=== PATIENT | female | born 1995 | race Caucasian/White ===

== ENCOUNTER → 2018-11-20 | Outpatient (CLI) | payer BC ==
--- NOTE | 2018-11-20 09:17 | NM ---
Nuclear medicine hepatobiliary scan. HISTORY: Pain. DOSAGE: The patient received 1.4 micrograms of CCK and 4.3 mCi of Technetium 99m Choletec. FINDINGS: There is normal hepatic extraction. The gallbladder is seen by 20 minutes. There is bilia ry to bowel clearance by 30 minutes. Ejection fraction is 86%. IMPRESSION: 1. Normal filling of the gallbladder with radiotracer. 2. Ejection fraction of 86% can occasionally be seen with hyperdynamic gallbladder correlate clinical ly.
== END | disposition home or self-care (01) ==
LOC: RADNMMAIN 06:53
PROVIDERS: ATTEND Surgery
DX: K82.8 Other specified diseases of gallbladder (principal)
CPT/HCPCS: 78227; A9537; J2805

== ENCOUNTER 2018-12-02 09:38 | Day surgery (SDC) | payer BC ==
[2018-11-26 13:40] VITALS: BMI 25.4
--- NOTE | 2018-12-02 09:25 | P.GSHP ---
History of Present Illness H&P Date: 12/02/18 Chief Complaint: Right upper quadrant pain This a 23-year-old female who presents today for laparoscopic cholecystectomy. Patient's had complaints of right quadrant pain. Her recent HIDA scan shows abnormal ejection fraction consistent with biliary hyperkinesia and chronic cholecystitis. Past Medical History Past Medical History: Asthma Additional Past Medical History / Comment(s): HX EXERCISE INDUCED ASTHMA , CYST RIGHT OVARY, HX MONO, STATES CONSTIPATION, NAUSEA AND STOMACH PAIN. History of Any Multi-Drug Resistant Organisms: None Reported Past Surgical History: Tonsillectomy Additional Past Surgical History / Comment(s): TONSILLECTOMY (2014), COLONOSCOPY, EGD. Past Anesthesia/Blood Transfusion Reactions: No Reported Reaction Past Psychological History: No Psychological Hx Reported Smoking Status: Never smoker Past Alcohol Use History: Rare Past Drug Use History: None Reported - Past Family History Mother Family Medical History: Cancer Additional Family Medical History / Comment(s): BREAST CANCER Medications and Allergies Home Medications Medication Instructions Recorded Confirmed Type Loestrin Control Pills 1 tab PO HS 11/26/18 11/26/18 History valACYclovir HCL [Valtrex] 1,000 mg PO Q12HR PRN 11/26/18 11/26/18 History Allergies Allergy/AdvReac Type Severity Reaction Status Date / Time No Known Allergies Allergy Verified 11/26/18 13:14 Surgical - Exam - General well developed, well nourished, no distress - Eyes PERRL - ENT normal pinna - Neck no masses - Respiratory normal expansion - Cardiovascular Rhythm: regular - Abdomen Abdomen: soft, non tender Assessment and Plan Assessment: Chronic cholecystitis. We'll perform laparoscopic cholecystectomy.
[~2018-12-02 09:38] MED LIST: DEXAMETHASONE SOD PHOSPHATE 10 MG/ML 1 ML VIAL IV ONE; HEPARIN SODIUM,PORCINE 5,000 UNIT/ML 1 ML VIAL SQ ONE; HYDROmorphone 0.5 MG/0.5 ML SYRINGE IVP PRN; KETOROLAC 30 MG/ML 1 ML VIAL IVP SCH; LIDOCAINE 1% 20 ML VIAL (10MG/ML) FOR IV START INTRADERMA PRN; METOCLOPRAMIDE 5 MG/ML 2 ML VIAL IVP PRN; ONDANSETRON 4 MG/2 ML VIAL IVP ONE; ONDANSETRON 4 MG/2 ML VIAL IVP PRN; SCOPOLAMINE 1.5MG/72HR PATCH TRANSDERM ONE; ceFAZolin IN SWFI 2 GM/20 ML SYRINGE IVP ONE
[2018-12-02] MEDS: LACTATED RINGERS 1,000 ML IV SCH ×2 (10:14→10:36)
[2018-12-02] MEDS ORDERED: SUCCINYLCHOLINE CHLORIDE 100 MG/5 ML SYR IV ONE (10:30)
[2018-12-02] MEDS ORDERED: LIDOCAINE 1% INJ 10MG/ML (20 ML MDV) ONE (10:30)
[2018-12-02] MEDS ORDERED: fentaNYL (PF) 50 MCG/ML 2 ML AMP ONE (10:30)
[2018-12-02] MEDS ORDERED: GLYCOPYRROLATE 0.2 MG/ML 2 ML VIAL ONE (10:30)
[2018-12-02] MEDS ORDERED: MIDAZOLAM 2 MG/2 ML VIAL ONE (10:30)
[2018-12-02] MEDS ORDERED: PROPOFOL 10 MG/ML 20 ML VIAL IV ONE (10:30)
[2018-12-02] MEDS ORDERED: NEOSTIGMINE 1 MG/ML 10 ML VIAL ONE (10:30)
[2018-12-02] MEDS ORDERED: BUPIVACAIN-EPI 0.25%-1:200,000 30 ML VIAL SQ ONE (10:52)
--- NOTE | 2018-12-02 11:26 | P.OP ---
Date of Procedure: 12/02/18 Preoperative Diagnosis: Cholecystitis Postoperative Diagnosis: Cholecystitis Procedure(s) Performed: Laparoscopic cholecystectomy Anesthesia: ALFRED Surgeon: Marcello Cook Estimated Blood Loss (ml): 5 Pathology: other (Gallbladder) Condition: stable Disposition: PACU Description of Procedure: The patient was placed on the operating table. The patient received a general endotracheal tube anesthesia. The patients abdomen was prepped and draped in the usual sterile fashion. Through an infraumbilical stab incision, the fascia of the anterior abdominal wall was grasped with a pair of Kochers and then the Veress needle was placed in the peritoneal cavity. Position of the Veress needle was confirmed with positive drop test. The abdomen was then insufflated. After adequate insufflation, the 10 mm trocar was placed in the peritoneal cavity. Following this the laparoscope was placed in the peritoneal cavity. The patient was placed in the head-up, right side up position and then a 5 mm trocar was placed in the right lateral and right subcostal position under direct visualization. A 8 mm trocar was placed in the epigastric position. The gallbladder was grasped in the fundus and infundibulum. Traction on the gallbladder was placed in the lateral and the cephalad positions. The triangle of Calot was visualized.. The cystic duct was bluntly dissected until the union of the cystic duct and common bile duct was seen. A critical view of safety was achieved. The cystic duct was then divided and sealed with the Harmonic scissors. A PDS Endoloop was then placed throughout the cystic duct stump. The cystic artery divided and sealed with the Harmonic scissors. The gallbladder was then removed from the liver bed using Harmonic scissors. The gallbladder was then extracted through the epigastric port site. Operative field was checked for any bleeding spots and Harmonic scissors was used to coagulate the liver bed. The abdomen was irrigated. The trocars were removed. The skin was closed using interrupted 3-0 Vicryl suture. Dermabond dressing were applied. The patient tolerated the procedure well.
[2018-12-02 11:33] VITALS: TEMP 96.8
[2018-12-02 12:20] VITALS: RESP 16
[2018-12-02 13:10] VITALS: BP 133/75; PULSE 85
== END 2018-12-02 13:37 | disposition home or self-care (01) ==
LOC: OR 09:38
PROVIDERS: ATTEND Surgery
DX: K81.1 Chronic cholecystitis (principal); J45.909 Unspecified asthma, uncomplicated; Z79.3 Long term (current) use of hormonal contraceptives; Z79.899 Other long term (current) drug therapy
CPT/HCPCS: 47562; 81025; 88304; J2250; J1644; J1100; J2710; J2405; J2001; J3010; J0330; J2704; J0690

== ENCOUNTER 2022-06-15 21:33 | Inpatient (IN) | payer BC ==
[2022-06-15] MEDS ORDERED: LIDOCAINE 0.5% (PF) 5 MG/ML (50 ML SDV) SQ PRN (21:49)
[2022-06-15] MEDS ORDERED: TERBUTALINE 1 MG/ML VIAL SQ PRN (21:49)
[2022-06-15] MEDS ORDERED: BUTORPHANOL 1 MG/ML 1 ML VIAL IV PRN (21:58)
[2022-06-15] MEDS ORDERED: OXYTOCIN 30 UNITS/500 ML NS 30 UNIT in SALINE 1 500ML.BAG IV SCH (22:00)
[2022-06-15] MEDS: LACTATED RINGERS 1,000 ML IV SCH (22:39)
[2022-06-15 22:51] LABS: Basophils % (A) 0 %; Eosinophils # (A) 0.1 k/uL (0-0.7); Eosinophils % (A) 1 %; HCT 34.1 % (34.0-46.0); HGB 11.7 gm/dL (11.4-16.0); Lymphocytes # (A) 1.8 k/uL (1.0-4.8); Lymphocytes % (A) 17 %; MCH 31.3 pg (25.0-35.0); MCHC 34.4 g/dL (31.0-37.0); MCV 90.9 fL (80.0-100.0); Mean Platelet Volume 9.9; Monocytes # (A) 0.6 k/uL (0-1.0); Monocytes % (A) 6 %; Neutrophils # (A) 8.1 k/uL (1.3-7.7); Neutrophils % (A) 75 %; Platelet Count 182 k/uL (150-450); RBC 3.75 m/uL (3.80-5.40); RDW 12.2 % (11.5-15.5); WBC 10.8 k/uL (3.8-10.6)
[2022-06-16 04:13] VITALS: RESP 16
[2022-06-16] MEDS: LACTATED RINGERS 1,000 ML IV SCH ×3 (06:30→23:39)
[2022-06-16] MEDS ORDERED: AMPICILLIN 2,000 MG in SODIUM CHLORIDE 0.9% 100 ML IVPB STA (10:14)
--- NOTE | 2022-06-16 10:14 | P.HPOB ---
History of Present Illness H&P Date: 06/16/22 Chief Complaint: IUP at 37-4/7 weeks, SROM This is a 27-year-old 1 para 0 at 37-4/7 weeks, estimated due date of 07/03. Patient presents to labor and delivery with complaints of spontaneous rupture of membranes around 9 PM. Patient denies contractions at that time. Patient has been receiving routine care which was essentially uncomplicated. Patient does have a history of HSV and she has been taking acyclovir. Patient notes good movement. On bloodwork this patient has a blood type of O-, rubella status immune, B surface antigen negative, HIV negative, RPR is nonreactive, group beta strep cultures are negative. Review of Systems Constitutional: Denies chills, Denies fatigue, Denies fever Ears, nose, mouth and throat: Denies headache Cardiovascular: Reports leg edema Respiratory: Denies dyspnea Gastrointestinal: Denies constipation, Denies diarrhea, Denies nausea, Denies vomiting Genitourinary: Reports Past Medical History Past Medical History: Asthma Additional Past Medical History / Comment(s): exercise induced asthma. HSV- most recent outbreak 2014, on acyclovir since 35wks prophylactically History of Any Multi-Drug Resistant Organisms: None Reported Past Surgical History: Cholecystectomy, Coronary Bypass/CABG, Tonsillectomy Additional Past Surgical History / Comment(s): TONSILLECTOMY (2014), COLONOSCOPY , EGD. Past Anesthesia/Blood Transfusion Reactions: No Reported Reaction Past Psychological History: No Psychological Hx Reported Smoking Status: Never smoker Past Alcohol Use History: Rare Past Drug Use History: None Reported - Past Family History Mother Family Medical History: Cancer Additional Family Medical History / Comment(s): BREAST CANCER Father Family Medical History: Hyperlipidemia Medications and Allergies Home Medications Medication Instructions Recorded Confirmed Type valACYclovir HCL [Valtrex] 500 mg PO DAILY PRN 11/26/18 06/15/22 History Vit No.179/Iron/Folic 1 each PO DAILY 06/15/22 06/15/22 History [ Tablet] Allergies Allergy/AdvReac Type Severity Reaction Status Date / Time No Known Allergies Allergy Verified 06/15/22 21:41 Exam Osteopathic Statement: *. No significant issues noted on an osteopathic structural exam other than those noted in the History and Physical/Consult. 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 Breathing is noted to be nonlabored, heart has a regular rate and rhythm, abdomen is gravid and appropriate for gestational age, on cervical exam she is 5/90/-2 station, heart tones are noted to be category 1 and she is trina every 3 minutes. Results Result Diagrams: 06/15/22 22:37 Abnormal Lab Results - Last 24 Hours (Table) 06/15/22 Range/Units 22:37 WBC 10.8 H (3.8-10.6) k/uL RBC 3.75 L (3.80-5.40) m/uL Neutrophils # 8.1 H (1.3-7.7) k/uL Assessment and Plan (1) 37 weeks gestation of Current Visit: Yes Status: Acute Code(s): Z3A.37 - 37 WEEKS GESTATION OF SNOMED Code(s): 08991207 (2) PROM (premature rupture of membranes) Current Visit: Yes Status: Acute Code(s): O42.90 - RAMU ROM, 7TH0 BETW RUPT & ONST LABR, UNSP WEEKS OF GEST SNOMED Code(s): 82099263 Plan: 27-year-old at 37-4/7 weeks that presents with premature rupture of membranes. Patient is admitted to labor and delivery and Pitocin augmentation of labor is begun. Patient did receive an epidural overnight. This morning patient was noted to be 5 cm for myself. We will plan on antibiotics for prolonged rupture of membranes. Continue present care
[2022-06-16] MEDS ORDERED: SILVER NITRATE APPLICATOR 1 EACH STICK..EA. TOPICAL ONE (13:42)
[2022-06-16] MEDS ORDERED: LANOLIN CREAM 5 GM TUBE TOPICAL PRN (13:44)
[2022-06-16] MEDS ORDERED: diphenhydrAMINE 50 MG CAP PO PRN (13:44)
[2022-06-16] MEDS ORDERED: ZOLPIDEM 5 MG TAB PO PRN (13:44)
[2022-06-16] MEDS ORDERED: HYDROCORTISONE 2.5% RECTAL CREAM 30 GM TUBE RECTAL PRN (13:44)
[2022-06-16] MEDS ORDERED: SIMETHICONE 80 MG CHEWABLE PO PRN (13:44)
[2022-06-16] MEDS ORDERED: diphenhydrAMINE 50 MG/ML 1 ML VIAL IVP PRN ×2 (13:44)
[2022-06-16] MEDS ORDERED: diphenhydrAMINE 25 MG CAP PO PRN (13:44)
[2022-06-16] MEDS ORDERED: BENZOCAINE/MENTHOL SPRAY 1 GM/SPRAY AEROSOL TOPICAL PRN (13:44)
[2022-06-16] MEDS ORDERED: OXYTOCIN 30 UNITS/500 ML NS 30 UNIT in SALINE 1 500ML.BAG IV SCH (13:45)
--- NOTE | 2022-06-16 13:54 | P.PROBDLV ---
Vaginal Delivery Note - . Vaginal Delivery Note: Findings; viable male infant delivered at 1310 , weight of 7 lbs. 10oz., Apgars of 8 and 9 at one and 5 minutes respectively. 27-year-old that presented to labor and delivery last evening with complaints of rupture of membranes. Patient states rupture of membranes occurred around 2100. Patient was admitted to labor and delivery and Pitocin augmentation of labor was begun around midnight. Patient has progressed well through labor. This morning she was noted to be 3-4 cm, and requesting epidural. Epidural was placed without difficulty by the anesthesia department. Patient made progress toward complete and began pushing. With excellent maternal effort she brought the infant down to a presentation, with additional pushing the anterior/posterior shoulder followed by the body was delivered. The infant was then placed on the maternal abdomen, spontaneous cry was noted at . After two-minute delay the umbilical cord was doubly clamped and cut and the placenta was delivered spontaneously intact with a three-vessel cord being noted. A small defect of the placenta was appreciated on manual extraction that piece of placenta was delivered. On inspection the patient's vaginal vault a hymenal laceration was appreciated this was injected with lidocaine and repaired in the usual fashion with 3-0 Rapide. Bleeding on the mucosal edge was noted therefore silver nitrate was used to obtain hemostasis. On further inspection a right labial laceration was noted and this was repaired in a running fashion with 4-0 chromic. Hemostasis was noted at the end of the delivery. The bladder was drained for 200 cc of clear yellow urine. The uterus was noted to be firm and below the umbilicus. Patient and tolerated delivery well and are resting comfortably All counts were noted to be correct 2 at the end of the delivery.
[2022-06-16] MEDS: IBUPROFEN 600 MG TAB PO SCH ×3 (17:59→23:55)
[2022-06-16] MEDS: AMPICILLIN 1,000 MG in SODIUM CHLORIDE 0.9% 50 ML IVPB SCH ×3 (19:42→23:42)
[2022-06-16] MEDS: ACETAMINOPHEN TAB 325 MG TAB PO PRN (19:53)
[2022-06-16] MEDS: SENNOSIDES-DOCUSATE SODIUM 1 EACH TAB PO SCH (19:53)
[2022-06-17 06:40] LABS: Basophils % (A) 0 %; Eosinophils # (A) 0.1 k/uL (0-0.7); Eosinophils % (A) 1 %; HCT 34.8 % (34.0-46.0); HGB 11.6 gm/dL (11.4-16.0); Lymphocytes # (A) 1.6 k/uL (1.0-4.8); Lymphocytes % (A) 12 %; MCHC 33.4 g/dL (31.0-37.0); MCV 92.9 fL (80.0-100.0); Monocytes # (A) 0.6 k/uL (0-1.0); Monocytes % (A) 4 %; Neutrophils # (A) 11.2 k/uL (1.3-7.7); Neutrophils % (A) 82 %; Platelet Count 155 k/uL (150-450); RBC 3.75 m/uL (3.80-5.40); RDW 12.2 % (11.5-15.5); WBC 13.6 k/uL (3.8-10.6)
[2022-06-17] MEDS: ACETAMINOPHEN TAB 325 MG TAB PO PRN (06:57)
--- NOTE | 2022-06-17 08:05 | P.DS ---
Providers Date of admission: 06/15/22 21:55 Expected date of discharge: 06/17/22 Attending physician: Mera Kingsley Primary care physician: Stated None Hospital Course: This is a 27-year-old female 1 para 0 EDC 07/03/2022 at 37-4/7 weeks who presented with spontaneous amniorrhexis at home, clear fluid. She was admitted, and oxytocin started the following morning. is remarkable for blood type O-, group B strep cultures negative, rubella status immune. Please see dictated history and physical for details. Patient went on to deliver vaginally a liveborn male with scores of 8 and 9 at one and 5 minutes respectively. Infant weighed 7 lbs. 10 oz. or 3470 g. The was a small first-degree perineal laceration easily repaired. Please see dictated delivery note for details. This morning the patient is doing well. She is voiding, ambulating, passing flatus without difficulty. Vital signs are stable and she is afebrile. Fundus is firm and in the midline, symmetric and 18 week size. Circumcision has been performed this morning. Patient has a prescription for breast pump. She is judged to be in very good condition for discharge home. She will follow-up with me in the office in 6 weeks. I have reminded her no intercourse, tampons or douching. She will use [id number]-[id number] Advil or Aleve, or Motrin as needed for pain. She will call with any fevers shakes or chills, foul smelling or copious lochia, with the passage of large blood clots, with any pain not alleviated by [id number] products, or indeed with any concerns. Assessment: Well first day Patient Condition at Discharge: Good Plan - Discharge Summary Discharge Rx Participant: No New Discharge Prescriptions: No Action valACYclovir HCL [Valtrex] 500 mg PO DAILY PRN PRN Reason: herpes outbreak Vit No.179/Iron/Folic [ Tablet] 1 each PO DAILY Discharge Medication List valACYclovir HCL [Valtrex] 500 mg PO DAILY PRN 11/26/18 [History] Vit No.179/Iron/Folic [ Tablet] 1 each PO DAILY 06/15/22 [History] Follow up Appointment(s)/Referral(s): Mera Kingsley MD [STAFF PHYSICIAN] - 6 Weeks
[2022-06-17] MEDS ORDERED: PRENATAL VIT-IRON-FOLIC ACID 1 EACH TABLET PO SCH (09:00)
[2022-06-17 10:00] VITALS: BP 138/75; PULSE 103; TEMP 97.5
[2022-06-17] MEDS: SENNOSIDES-DOCUSATE SODIUM 1 EACH TAB PO SCH (10:00)
[2022-06-17] MEDS: IBUPROFEN 600 MG TAB PO SCH ×2 (10:01→14:54)
== END 2022-06-17 15:30 | disposition home or self-care (01) | DRG 806 ==
LOC: FBPOP 21:33 → 4FBP 21:55
PROVIDERS: ADMIT Obstetrics & Gynecology Obstetrics; ATTEND Obstetrics & Gynecology
PROC: 10E0XZZ Delivery of Products of Conception, External Approach (ICD-10-PCS; principal; 2022-06-16)
PROC: 0HQ9XZZ Repair Perineum Skin, External Approach (ICD-10-PCS; 2022-06-16)
PROC: 10907ZC Drainage of Amniotic Fluid, Therapeutic from Products of Conception, Via Natural or Artificial Opening (ICD-10-PCS; 2022-06-16)
PROC: 3E033VJ Introduction of Other Hormone into Peripheral Vein, Percutaneous Approach (ICD-10-PCS; 2022-06-16)
PROC: 4A0HXCZ Measurement of Products of Conception, Cardiac Rate, External Approach (ICD-10-PCS; 2022-06-16)
DX: O42.92 Full-term premature rupture of membranes, unspecified as to length of time between rupture and onset of labor (principal); O98.32 Other infections with a predominantly sexual mode of transmission complicating childbirth; Z37.0 Single live birth; O70.0 First degree perineal laceration during delivery; A60.09 Herpesviral infection of other urogenital tract; J45.909 Unspecified asthma, uncomplicated; O99.52 Diseases of the respiratory system complicating childbirth; Z3A.37 37 weeks gestation of pregnancy; Z95.1 Presence of aortocoronary bypass graft; Z90.49 Acquired absence of other specified parts of digestive tract
CPT/HCPCS: 59025; 84112; 85025; 86850; 86870; 86880; 86900; 86901; 99213

== ENCOUNTER 2023-10-16 19:24 | Outpatient (CLI) | payer BC ==
[2023-10-16 20:51] LABS: Appearance,Urine Clear (Clear); Bilirubin,Urine Negative (Negative); Blood,Urine Negative (Negative); Color,Urine Colorless; Glucose,Urine (UA) Negative (Negative); Ketones,Urine Negative (Negative); Leukocyte Esterase,Urine Negative (Negative); Nitrite,Urine Negative (Negative); PH, Urine 7.5 (5.0-8.0); Protein,Urine Negative (Negative); Specific Gravity,Urine 1.007 (1.001-1.035); Urobilinogen,Urine <2.0 mg/dL (<2.0)
[2023-10-16 21:09] LABS: Basophils # (A) 0.1 k/uL (0-0.2); Basophils % (A) 0 %; Eosinophils # (A) 0.1 k/uL (0-0.7); Eosinophils % (A) 1 %; HCT 37.8 % (34.0-46.0); HGB 12.6 gm/dL (11.4-16.0); Lymphocytes # (A) 1.9 k/uL (1.0-4.8); Lymphocytes % (A) 16 %; MCH 31.2 pg (25.0-35.0); MCHC 33.4 g/dL (31.0-37.0); MCV 93.3 fL (80.0-100.0); Mean Platelet Volume 9.2; Monocytes # (A) 0.8 k/uL (0-1.0); Monocytes % (A) 7 %; Neutrophils # (A) 8.9 k/uL (1.3-7.7); Neutrophils % (A) 75 %; Platelet Count 185 k/uL (150-450); RBC 4.05 m/uL (3.80-5.40); RDW 12.8 % (11.5-15.5); WBC 11.9 k/uL (3.8-10.6)
[2023-10-16] MEDS: ACETAMINOPHEN TAB 500 MG TAB PO STA (21:24)
[2023-10-16] MEDS: CYCLOBENZAPRINE 5 MG TAB PO STA (22:06)
[2023-10-17 00:32] VITALS: BP 137/77; PULSE 82; RESP 16; TEMP 98
--- NOTE | 2023-11-24 16:31 | P.MSEPDOC ---
Presenting Problems - Arrival Data Date of Arrival on Unit: 10/17/23 Time of Arrival on Unit: 19:24 Mode of Transport: Ambulatory - Complaint OB-Reason for Admission/Chief Complaint: Pain Comment: Patient arrived to triage with right lower back pain that is a 9/10 stabing pain that radiates to right side pelvis. Pain started yesterday patient took tylenol orally and pain subsidded patient took tylenol oral today at 2:00PM and pain did not subside. Patient denies complication with this . Patient denies leaking of fluid and denies vaginal bleeding. Patient denies sexual intercourse within last 24 hours. Medical History - Information : 2 Para: 1 Term: 1 : 0 Abortions: Spontaneous or Elective: 0 Number of Living Children: 1 - Gestational Age Gestational Age by DERRICK (wks/days): 28 Weeks and 3 Days Review of Systems - Review of Systems Constitutional: No problems Breast: No problems ENT: No problems Cardiovascular: No problems Respiratory: No problems Gastrointestinal: No problems Genitourinary: No problems Musculoskeletal: No problems Neurological: No problems Skin: No problems Vital Signs - Temperature Temperature: 98.0 F Temperature Source: Temporal Artery Scan - Pulse Pulse Oximetery Pulse Rate: 82 Pulse Assessment Method: Pulse Oximetry - Respirations Respiratory Rate: 16 Oxygen Delivery Method: Room Air O2 Sat by Pulse Oximetry: 100 - Blood Pressure Right Arm Blood Pressure: 137/77 Blood Pressure Mean: 97 Blood Pressure Source: Automatic Cuff Medical Screen Scoring - Assessment - Baby A Baseline FHR: 130 Heart Rate - NICHD Category: Category I (Normal) NST: Reactive Physician Notification - Physician Notified Physician Notified Date: 10/17/23 Physician Notified Time: 20:26 Physician: Teetee Chase New Order Received: Yes - Notification Comment Comment: Dr. Chase aware of c/o, vitals, cat1 FHR tone and no contractions. Dr. Chase was not addressed earlier she was in with labor patient. RN spoke with Dr. Chase who is currently on family unit Dr. Chase ordered U/A, CBC and Tylenol 500mg oral. 2200 Dr. Chase on FBP unit ordered flexeril 5mg oral for patient. Dr. Chase states the the pain sounds like it is MSK and discharged patient with orders to wear abdominal binder, use hot and cold packs, take over the counter tylenol per directions. Maternal Triage Index - Urgent/Priority 2 Urgent Priority 2: Yes Provider Notified: Teetee Chase Provider Notified Time: 20:26 Criteria Met for Priority 2: Patient arrived to triage with right lower back pain that is a 9/10 stabing pain that radiates to right side pelvis. Pain started yesterday patient took tylenol orally and pain subsidded patient took tylenol oral today at 2:00PM and pain did not subside. Patient denies complication with this . Patient denies leaking of fluid and denies vaginal bleeding. Patient denies sexual intercourse within last 24 hours. Disposition - Disposition OB Disposition: Discharge to home Discharge Date: 10/17/23 Discharge Time: 22:05 I agree with the RN Medical Screening Exam: Yes Physician's MSE Comment: I have neither seen nor examined the patient Case reviewed; plan agreed upon as documented in EMR&OBIX.: Yes Diagnosis: MATERNAL CARE FOR PROBLEM, UNSP, THIRD * DO NOT USE *
== END 2023-10-16 22:06 ==
LOC: FBPOP 19:24
PROVIDERS: ATTEND Obstetrics & Gynecology
DX: O26.893 Other specified pregnancy related conditions, third trimester (principal); M54.50 Low back pain, unspecified; R10.2 Pelvic and perineal pain; Z3A.28 28 weeks gestation of pregnancy
CPT/HCPCS: 36415; 59025; 81003; 85025; 99213

== ENCOUNTER 2023-10-17 02:53 | Inpatient (IN) | payer BC ==
[2023-10-17] MEDS: MORPHINE SULFATE 2 MG/ML SYRINGE IVP PRN (03:24)
[2023-10-17] MEDS: ONDANSETRON 4 MG/2 ML VIAL IVP PRN (03:28)
[2023-10-17] MEDS: LACTATED RINGERS 1,000 ML IV ONE (03:32)
[2023-10-17] MEDS: LACTATED RINGERS 1,000 ML IV SCH (03:40)
[2023-10-17 03:53] LABS: ALT 21 U/L (4-34); African American GFR (CKD) >90 (>60 ml/min/1.73 sqM); Albumin 3.4 g/dL (3.5-5.0); Anion Gap 6 mmol/L; Blood Urea Nitrogen 13 mg/dL (7-17); Calcium 8.6 mg/dL (8.4-10.2); Carbon Dioxide 23 mmol/L (22-30); Chloride 104 mmol/L (98-107); Glucose 108 mg/dL (74-99); Non-African American GFR(CKD) 87 (>60 ml/min/1.73 sqM); Sodium 133 mmol/L (137-145); Total Bilirubin 0.4 mg/dL (0.2-1.3); Total Protein 6.3 g/dL (6.3-8.2)
[2023-10-17 03:57] VITALS: RESP 16
[2023-10-17 04:15] LABS: AST 24 U/L (14-36); Alkaline Phosphatase 66 U/L (38-126); Potassium 4.5 mmol/L (3.5-5.1)
--- NOTE | 2023-10-17 05:47 | US ---
EXAMINATION TYPE: US kidneys/renal and bladder DATE OF EXAM: 10/17/2023 COMPARISON: NONE CLINICAL INDICATION: Female, 28 years old with history of pain; right flank pain x 1 day Pt is preg nant EXAM MEASUREMENTS: Right Kidney: 13.6 x 6.8 x 5.9 cm Left Kidney: 11.6 x 6.3 x 6.2 cm Right Kidney: 2 echogenic foci seen. Larger one = 0.6 x 0.9 x 0.7cm. hydronephrosis seen. Left Kidney: No hydronephrosis or masses seen Bladder: wnl Bilateral Jets seen: No [id number]-[id number] right-sided hydronephrosis. No left-sided hydronephrosis. Suspect two nonobstructi ng right renal calculi. No concerning renal masses are identified. The urinary bladder is adequately distended. Bilateral ureteral jets are not seen. IMPRESSION: Asymmetric moderate to severe right-sided hydronephrosis, suspect obstructing urinary nicky culus.
[2023-10-17] MEDS: ACETAMINOPHEN TAB 325 MG TAB PO PRN (05:52)
--- NOTE | 2023-10-17 09:44 | P.HPOB ---
History of Present Illness H&P Date: 10/17/23 Chief Complaint: IUP at 28 weeks, renal lithiasis 28-year-old 2 para 1 at 28 weeks of that presented last evening with complaints of flank pain. Patient was seen in triage initially received pain medications and was discharged home. Patient states the pain increased therefore she was admitted for pain control on a second admission to triage. Patient underwent renal ultrasound showing calculus, pain has been controlled overnight with IV morphine and oral Tylenol. Patient notes good movement and denies uterine contractions. Review of Systems Constitutional: Denies chills, Denies fatigue, Denies fever Ears, nose, mouth and throat: Denies headache Cardiovascular: Denies leg edema Respiratory: Denies dyspnea Gastrointestinal: Denies nausea, Denies vomiting Genitourinary: Reports as per HPI, Reports flank pain, Reports Past Medical History Past Medical History: Asthma Additional Past Medical History / Comment(s): exercise induced asthma. HSV- most recent outbreak 2014, on acyclovir since 35wks prophylactically History of Any Multi-Drug Resistant Organisms: None Reported Past Surgical History: Cholecystectomy, Coronary Bypass/CABG, Tonsillectomy Additional Past Surgical History / Comment(s): TONSILLECTOMY (2014), COLONOS COPY, EGD. Past Anesthesia/Blood Transfusion Reactions: No Reported Reaction Past Psychological History: No Psychological Hx Reported Smoking Status: Never smoker Past Alcohol Use History: Rare Past Drug Use History: None Reported - Past Family History Mother Family Medical History: Cancer Additional Family Medical History / Comment(s): BREAST CANCER Father Family Medical History: Hyperlipidemia Medications and Allergies Home Medications Medication Instructions Recorded Confirmed Type valACYclovir HCL [Valtrex] 500 mg PO DAILY PRN 11/26/18 06/15/22 History Vit No.179/Iron/Folic 1 each PO DAILY 06/15/22 06/15/22 History [ Tablet] Aspirin 81 mg PO DAILY 10/16/23 10/16/23 History Allergies Allergy/AdvReac Type Severity Reaction Status Date / Time No Known Allergies Allergy Verified 10/16/23 19:56 Exam Osteopathic Statement: *. No significant issues noted on an osteopathic structural exam other than those noted in the History and Physical/Consult. Vital Signs Temp Pulse Resp BP Pulse Ox 10/17/23 03:25 98.0 F 82 16 137/77 100 10/17/23 03:02 97.6 F 84 18 122/75 99 Intake and Output 10/16/23 10/17/23 10/17/23 22:59 06:59 14:59 Intake Total 480 Balance 480 Intake: Oral 480 Other: # Voids 1 Weight 80.739 kg Patient appears uncomfortable laying on her right side, no acute distress, breathing nonlabored, abdomen is gravid Results Result Diagrams: 10/17/23 03:22 Abnormal Lab Results - Last 24 Hours (Table) 10/17/23 Range/Units 03:22 Sodium 133 L (137-145) mmol/L Glucose 108 H (74-99) mg/dL Albumin 3.4 L (3.5-5.0) g/dL Assessment and Plan (1) 28 weeks gestation of Current Visit: Yes Status: Acute Code(s): Z3A.28 - 28 WEEKS GESTATION OF SNOMED Code(s): 92349781 (2) Renal lithiasis Current Visit: Yes Status: Acute Code(s): N20.0 - CALCULUS OF KIDNEY SNOMED Code(s): 59497715 Plan: 28 yo admitted through the night for renal lithiasis, obstructing renal calculus is noted on renal US. Plan: continue with IV morphine/Ofirmev for pain control. Will add IV cefazolin 2 gm Q8 hours. Will consult urology regarding obstructing calculus visualized on renal ul trasound. heart tones every shift
[2023-10-17] MEDS: ACETAMINOPHEN IV (For NPO) 1,000 MG in EMPTY BAG 1 BAG IVPB PRN (12:59)
--- NOTE | 2023-10-18 07:45 | P.GSCN ---
History of Present Illness Consult date: 10/17/23 Reason for Consult: Right renal calculi Requesting physician: Litzy Howell History of present illness: The patient is a 28-year-old white female with no prior history of urolithiasis. She is in the 28th week of her second . On October 15, 2023 she experienced mild right-sided discomfort, which has intensified and she describes as being severe. She states that the pain is not positional. She has noted mi ld urinary changes described as slight dysuria, but does not feel she has a UTI. She has been treated for UTIs in the past. Renal ultrasound shows evidence of moderate to severe right hydronephrosis, and 2 right renal calculi are suspected. Review of Systems - Constitutional Denies chills, Denies fever - Genitourinary Genitourinary: Reports dysuria, Denies hematuria Past Medical History Past Medical History: Asthma Additional Past Medical History / Comment(s): exercise induced asthma. HSV- most recent outbreak 2014, on acyclovir since 35wks prophylactically History of Any Multi-Drug Resistant Organisms: None Reported Past Surgical History: Cholecystectomy, Coronary Bypass/CABG, Tonsillectomy Additional Past Surgical History / Comment(s): TONSILLECTOMY (2015), COLONOSCOPY, EGD. Past Anesthesia/Blood Transfusion Reactions: No Reported Reaction Past Psychological History: No Psychological Hx Reported Smoking Status: Never smoker Past Alcohol Use History: Rare Past Drug Use History: None Reported - Past Family History Mother Family Medical History: Cancer Additional Family Medical History / Comment(s): BREAST CANCER Father Family Medical History: Hyperlipidemia Medications and Allergies Home Medications Medication Instructions Recorded Confirmed Type valACYclovir HCL [Valtrex] 500 mg PO DAILY PRN 11/26/18 06/15/22 History Vit No.179/Iron/Folic 1 each PO DAILY 06/15/22 06/15/22 History [ Tablet] Aspirin 81 mg PO DAILY 10/16/23 10/16/23 History Allergies Allergy/AdvReac Type Severity Reaction Status Date / Time No Known Allergies Allergy Verified 10/16/23 19:56 Surgical - Exam Vital Signs Temp Pulse Resp BP Pulse Ox 97.6 F 84 18 122/75 99 10/17/23 03:02 10/17/23 03:02 10/17/23 03:02 10/17/23 03:02 10/17/23 03:02 - General well developed, well nourished, no distress - Respiratory normal respiratory effort - Abdomen Soft, gravid uterus. Mild right-sided abdominal and flank discomfort. No guarding or rebound. - Psychiatric oriented to time, oriented to person, oriented to place, speech is normal, memory intact Results - Labs 10/17/23 03:22 Abnormal Lab Results - Last 24 Hours (Table) 10/17/23 Range/Units 03:22 Sodium 133 L (137-145) mmol/L Glucose 108 H (74-99) mg/dL Albumin 3.4 L (3.5-5.0) g/dL Diabetes panel 10/17/23 Range/Units 03:22 Sodium 133 L (137-145) mmol/L Potassium 4.5 (3.5-5.1) mmol/L Chloride 104 (98-107) mmol/L Carbon Dioxide 23 (22-30) mmol/L BUN 13 (7-17) mg/dL Creatinine 0.92 (0.52-1.04) mg/dL Glucose 108 H (74-99) mg/dL Calcium 8.6 (8.4-10.2) mg/dL AST 24 (14-36) U/L ALT 21 (4-34) U/L Alkaline Phosphatase 66 (38-126) U/L Total Protein 6.3 (6.3-8.2) g/dL Albumin 3.4 L (3.5-5.0) g/dL Calcium panel 10/17/23 Range/Units 03:22 Calcium 8.6 (8.4-10.2) mg/dL Albumin 3.4 L (3.5-5.0) g/dL Pituitary panel 10/17/23 Range/Units 03:22 Sodium 133 L (137-145) mmol/L Potassium 4.5 (3.5-5.1) mmol/L Chloride 104 (98-107) mmol/L Carbon Dioxide 23 (22-30) mmol/L BUN 13 (7-17) mg/dL Creatinine 0.92 (0.52-1.04) mg/dL Glucose 108 H (74-99) mg/dL Calcium 8.6 (8.4-10.2) mg/dL Adrenal panel 10/17/23 Range/Units 03:22 Sodium 133 L (137-145) mmol/L Potassium 4.5 (3.5-5.1) mmol/L Chloride 104 (98-107) mmol/L Carbon Dioxide 23 (22-30) mmol/L BUN 13 (7-17) mg/dL Creatinine 0.92 (0.52-1.04) mg/dL Glucose 108 H (74-99) mg/dL Calcium 8.6 (8.4-10.2) mg/dL Total Bilirubin 0.4 (0.2-1.3) mg/dL AST 24 (14-36) U/L ALT 21 (4-34) U/L Alkaline Phosphatase 66 (38-126) U/L Total Protein 6.3 (6.3-8.2) g/dL Albumin 3.4 L (3.5-5.0) g/dL - Imaging US - kidney/bladder: report reviewed Assessment and Plan (1) Renal lithiasis Current Visit: Yes Status: Acute Code(s): N20.0 - CALCULUS OF KIDNEY SNOMED Code(s): 70757841 (2) Hydronephrosis Current Visit: No Status: Acute Code(s): N13.30 - UNSPECIFIED HYDRONEPHROSIS SNOMED Code(s): 02652455 Plan: I had a very lengthy discussion with the patient and her regarding her pain and hydronephrosis. I explained to them the right hydronephrosis is very common during , and that it cannot be automatically assumed that the hydronephrosis is the result of urolithiasis. The 2 calculi presumed to be seen on ultrasound would not be causing hydronephrosis, but I explained to them that she could have a third calculus within the ureter which is obstructing. Methods of diagnosis include a KUB x-ray, low-dose CT scan, and MRI. MRI is considerably less effective than CT scan in diagnosing urinary calculi, but it avoids the use of any radiation. If she was found to have a ureteral calculus, treatment options include observation, ureteral stent placement, and ureteroscopic removal of the calculus. I explained that some women enter a lithogenic state during , and that it is recommended that stents be changed every 10 weeks in view of this. Ureteroscopy is felt to be safe during , but does require general anesthesia and could result and premature contractions and/or ureteral injury. She will be observed overnight and reevaluated tomorrow. I will recommend intervention only if her pain is severe and her symptoms are intractable. Time with Patient: Greater than 30
[2023-10-18 08:45] VITALS: BP 121/58; PULSE 81; TEMP 97.5
[2023-10-18] MEDS: ACETAMINOPHEN TAB 500 MG TAB PO PRN (10:38)
--- NOTE | 2023-10-18 11:03 | P.PN ---
Subjective Progress Note Date: 10/18/23 Principal diagnosis: Right hydronephrosis The patient states that she is reasonably comfortable this morning. She states that she lied on her left side throughout the night, but this did not relieve her discomfort. She was given a single dose of Tylenol overnight. Objective - Vital Signs Vital signs: Vital Signs Temp 97.0 F L 10/17/23 23:47 Pulse 82 10/17/23 23:47 Resp 16 10/17/23 23:47 BP 112/68 10/17/23 23:47 Pulse Ox 98 10/17/23 23:47 FiO2 Intake & Output 10/17/23 10/18/23 10/18/23 18:59 06:59 18:59 Intake Total 1000 Balance 1000 Intake: IV 1000 Other: # Voids 2 2 - Constitutional General appearance: Present: average body habitus, cooperative, no acute distress - Psychiatric Psychiatric: Present: A&O x's 3 - Labs CBC & Chem 7: 10/17/23 03:22 Assessment and Plan (1) Renal lithiasis Current Visit: Yes Status: Acute Code(s): N20.0 - CALCULUS OF KIDNEY SNOMED Code(s): 10923086 (2) Hydronephrosis Current Visit: No Status: Acute Code(s): N13.30 - UNSPECIFIED HYDRONEPHROSIS SNOMED Code(s): 41794255 Plan: I have discussed various imaging modalities with Dr. Crum from Radiology. I had a lengthy discussion with the patient and Dr. Fontenot regarding her condition. We have mutually agreed that as long as her pain is manageable and controlled with Tylenol, she will be observed. If she develops breakthrough heriberto n refractory to oral medication, she will undergo imaging to determine whether or not she has a ureteral calculus. It is anticipated that she will be discharged home later today with a prescription for Tylenol 3. She has been advised to contact me if her pain worsens. If she is able to make it through the duration of her without intervention, she was instructed to contact me after she delivers so that a CT scan can be obtained and an accurate diagnosis can be obtained.
--- NOTE | 2023-10-18 11:48 | P.DS ---
Providers Date of admission: 10/17/23 03:24 Expected date of discharge: 10/18/23 Attending physician: Teetee Chase MD Consults: 10/17/23 09:38 Consult Physician Urgent Consulting Provider: ASHVIN REILLY Consult Reason/Comments: renal calculus, on US obstructing calculus with hydronephrous seen Do you want consulting provider notified?: Yes Primary care physician: Stated None - Discharge Diagnosis(es) (1) 28 weeks gestation of Current Visit: Yes Status: Acute (2) Hydronephrosis Current Visit: No Status: Acute (3) Renal lithiasis Current Visit: Yes Status: Acute Hospital Course: The patient is a 28-year-old 2 para 1-0-0-1 admitted at 28 weeks by good dating parameters complaining of significant right flank pain. She was evaluated in triage and had significantly increasing pain. She underwent a renal ultrasound showing a prospective calculus which was thought to potentially be obstructive in nature. She was admitted for IV pain control and IV hydration with straining of the urine. Urology was consulted and, after discussions with radiology, concluded that there is no obvious evidence of nephrolithiasis though there is somewhat more hydronephrosis on the right side than anticipated simply due to . Urinalysis is equivocal. The patient is tolerating liquids and solids by mouth and her pain has been controlled thus far with Tylenol alone. As a result and after discussion with urology, we have opted to discontinue all IV medications in favor of oral Tylenol with the intention of discharging her to home to follow-up as an outpatient as needed. She has been strongly encouraged to hydrate orally and to continue to strain her urine. Should her pain become more significant she can return. She was provided with a prescription for Tylenol 3, 1-2 p.o. every 6 hours as needed pain, #20 dispensed with no refills. status has been reassuring throughout the stay. The plan was discussed with the patient by both myself and Dr. Nieto and she has agreed with the plan as outlined. She was discharged home to follow-up in the office later this week with her primary oncology nurse navigator and to call for any increasing symptoms or problems. Procedures: #1. Renal ultrasound #2. IV hydration #3. IV pain control #4. Urology consultation Patient Condition at Discharge: Stable Plan - Discharge Summary New Discharge Prescriptions: No Action valACYclovir HCL [Valtrex] 500 mg PO DAILY PRN PRN Reason: herpes outbreak Vit No.179/Iron/Folic [ Tablet] 1 each PO DAILY Aspirin 81 mg PO DAILY Discharge Medication List valACYclovir HCL [Valtrex] 500 mg PO DAILY PRN 11/26/18 [History] Vit No.179/Iron/Folic [ Tablet] 1 each PO DAILY 06/15/22 [History] Aspirin 81 mg PO DAILY 10/16/23 [History] Follow up Appointment(s)/Referral(s): Litzy Howell DO [Doctor of Osteopathic Medicine] - 1 Week Discharge Disposition: HOME SELF-CARE
== END 2023-10-18 12:45 | disposition home or self-care (01) | DRG 832 ==
LOC: FBPOP 02:53 → 4FBP 03:05 → OBSVTOIN 03:24
PROVIDERS: ADMIT Obstetrics & Gynecology; ATTEND Obstetrics & Gynecology
DX: O26.833 Pregnancy related renal disease, third trimester (principal); N13.2 Hydronephrosis with renal and ureteral calculous obstruction; O98.513 Other viral diseases complicating pregnancy, third trimester; O99.513 Diseases of the respiratory system complicating pregnancy, third trimester; B00.9 Herpesviral infection, unspecified; J45.990 Exercise induced bronchospasm; Z3A.28 28 weeks gestation of pregnancy; Z95.1 Presence of aortocoronary bypass graft; Z79.82 Long term (current) use of aspirin; Z79.899 Other long term (current) drug therapy; Z87.440 Personal history of urinary (tract) infections
CPT/HCPCS: 36415; 59025; 76770; 80053; 96361; 96375; 99213

== ENCOUNTER 2023-12-30 05:57 | Inpatient (IN) | payer BC ==
[2023-12-30] MEDS ORDERED: CARBOPROST TROMETHAMINE 250 MCG/ML 1 ML AMP IM PRN (06:18)
[2023-12-30] MEDS ORDERED: miSOPROStoL 200 MCG TAB PO PRN (06:18)
[2023-12-30] MEDS ORDERED: TERBUTALINE 1 MG/ML VIAL SQ PRN (06:18)
[2023-12-30] MEDS ORDERED: LIDOCAINE 0.5% (PF) 5 MG/ML (50 ML SDV) SQ PRN (06:18)
[2023-12-30] MEDS ORDERED: OXYTOCIN 10 UNIT/ML 1 ML VIAL IM PRN (06:18)
[2023-12-30] MEDS ORDERED: TRANEXAMIC 1,000 MG/100ML-NACL 1,000 MG in EMPTY BAG 1 BAG IV PRN (06:18)
[2023-12-30] MEDS: OXYTOCIN 30 UNITS/500 ML NS 30 UNIT in SALINE 1 500ML.BAG IV SCH (06:35)
[2023-12-30] MEDS: LACTATED RINGERS 1,000 ML IV SCH (06:37)
[2023-12-30 06:44] LABS: Basophils % (A) 0 %; Eosinophils # (A) 0.1 k/uL (0-0.7); Eosinophils % (A) 1 %; HCT 37.6 % (34.0-46.0); HGB 12.1 gm/dL (11.4-16.0); Lymphocytes # (A) 2.3 k/uL (1.0-4.8); Lymphocytes % (A) 25 %; MCH 30.4 pg (25.0-35.0); MCHC 32.1 g/dL (31.0-37.0); MCV 94.6 fL (80.0-100.0); Monocytes # (A) 0.6 k/uL (0-1.0); Monocytes % (A) 6 %; Neutrophils % (A) 66 %; Platelet Count 158 k/uL (150-450); RBC 3.98 m/uL (3.80-5.40); RDW 12.9 % (11.5-15.5)
[2023-12-30] MEDS ORDERED: diphenhydrAMINE 50 MG CAP PO PRN (17:07)
[2023-12-30] MEDS ORDERED: BENZOCAINE/MENTHOL SPRAY 1 GM/SPRAY AEROSOL TOPICAL PRN (17:07)
[2023-12-30] MEDS ORDERED: ZOLPIDEM 5 MG TAB PO PRN (17:07)
[2023-12-30] MEDS ORDERED: SIMETHICONE 80 MG CHEWABLE PO PRN (17:07)
[2023-12-30] MEDS ORDERED: diphenhydrAMINE 50 MG/ML 1 ML VIAL IVP PRN ×2 (17:07)
[2023-12-30] MEDS ORDERED: HYDROCORTISONE 2.5% RECTAL CREAM 30 GM TUBE RECTAL PRN (17:07)
[2023-12-30] MEDS ORDERED: LANOLIN CREAM 1 GM TUBE TOPICAL PRN (17:07)
[2023-12-30] MEDS ORDERED: diphenhydrAMINE 25 MG CAP PO PRN (17:07)
--- NOTE | 2023-12-30 17:12 | P.PROBDLV ---
Vaginal Delivery Note - . Vaginal Delivery Note: Findings viable male delivered at 1647, weight of 8 pounds 7 ounces 28-year-old 2 para 1 at 39-0/7 weeks that presented to labor and delivery for induction of labor. Patient was admitted to labor and delivery and Pitocin induction of labor was begun per hospital protocol. Patient underwent amniotomy and clear fluid was obtained. Patient progressed through labor eventually becoming uncomfortable and requesting epidural. Epidural was placed without difficulty by the anesthesia department. Patient made progress toward complete dilation. Once patient was noted to be completely dilated she began pushing. With excellent maternal effort she had delivery of the head mild shoulder dystocia was appreciated and reduced with Yoandy positioning. was handed to the maternal abdomen. Spontaneous cry was noted at . After 2-minute delay the umbilical cord was doubly clamped and cut. The placenta was then delivered spontaneously intact with a three-vessel cord being noted. Uterus was noted to be firm and below the umbilicus. A small gush of bleeding was noted and the uterus was noted to be boggy, with manual massage uterus firmed. Bladder was drained for approximately 50 cc of clear yellow urine. No vaginal lacerations were appreciated on assessment. Methergine was given as an additional gush was appreciated. Uterus was noted to be firm bleeding slowed. Estimated blood loss 300 cc. Patient and infant tolerated delivery well and are resting comfortably.
--- NOTE | 2023-12-30 17:13 | P.HPOB ---
History of Present Illness H&P Date: 12/30/23 Chief Complaint: IUP at 39-0/7 weeks 28-year-old G2, P1 at 39 weeks of that presents for induction of labor. Patient has been receiving routine care. Patient denies concerns this morning. Patient notes good movement denies vaginal bleeding or loss of fluid. Occasional contractions are appreciated. On blood work patient is a blood type of O-, rubella status immune, hepatitis B surface engine negative, HIV negative, history of HSV on Valtrex. Grew beta strep culture negative. Review of Systems Constitutional: Denies chills, Denies fatigue, Denies fever Ears, nose, mouth and throat: Denies headache Cardiovascular: Reports leg edema Respiratory: Denies dyspnea Gastrointestinal: Denies constipation, Denies diarrhea, Denies nausea, Denies vomiting Genitourinary: Reports Past Medical History Past Medical History: Asthma Additional Past Medical History / Comment(s): exercise induced asthma. HSV- most recent outbreak 2014, on acyclovir since 35wks prophylactically History of Any Multi-Drug Resistant Organisms: None Reported Past Surgical History: Cholecystectomy, Coronary Bypass/CABG, Tonsillectomy Additional Past Surgical History / Comment(s): TONSILLECTOMY (2014), COLONOSCOPY, EGD. Past Anesthesia/Blood Transfusion Reactions: No Reported Reaction Past Psychological History: No Psychological Hx Reported Smoking Status: Never smoker Past Alcohol Use History: None Reported Past Drug Use History: None Reported - Past Family History Mother Family Medical History: Cancer Additional Family Medical History / Comment(s): BREAST CANCER Father Family Medical History: Hyperlipidemia Medications and Allergies Home Medications Medication Instructions Recorded Confirmed Type valACYclovir HCL [Valtrex] 500 mg PO DAILY PRN 11/26/18 12/30/23 History Vit No.179/Iron/Folic 1 each PO DAILY 06/15/22 12/30/23 History [ Tablet] Aspirin 81 mg PO DAILY 10/16/23 12/30/23 History Allergies Allergy/AdvReac Type Severity Reaction Status Date / Time No Known Allergies Allergy Verified 12/30/23 06:16 Exam Osteopathic Statement: *. No significant issues noted on an osteopathic structural exam other than those noted in the History and Physical/Consult. Vital Signs Temp Pulse Resp BP Pulse Ox 12/30/23 06:16 97.3 F L 92 16 118/76 100 Intake and Output 12/29/23 12/30/23 12/30/23 22:59 06:59 14:59 Other: Weight 88.904 kg Targeted physical exam is performed this date General is well-nourished well- developed female in no acute distress, breathing is unlabored, heart has a regular rate and rhythm, abdomen is gravid, on cervical exam she is 2/50/- 2 station heart tones are to be category 1 and she is trina irregularly. Amniotomy is performed and clear fluid was obtained. Results Result Diagrams: 12/30/23 06:15 Assessment and Plan (1) Term Current Visit: Yes Status: Acute Code(s): Z34.90 - ENCNTR FOR SUPRVSN OF NORMAL , UNSP, UNSP TRIMESTER SNOMED Code(s): 97639288 Plan: 28-year-old G2, P1 at 39-0/7 weeks presents for induction of labor. Patient is admitted and Pitocin induction of labor has begun per hospital protocol. Amniotomy is performed clear fluid was obtained. Patient does request epidural for analgesia. Anesthesia will be notified. Anticipate spontaneous vaginal delivery later today.
[2023-12-30] MEDS: METHYLERGONOVINE 0.2 MG/ML 1 ML AMP IM PRN (17:38)
[2023-12-30] MEDS: SENNOSIDES-DOCUSATE SODIUM 1 EACH TAB PO SCH (19:59)
[2023-12-30] MEDS: IBUPROFEN 600 MG TAB PO SCH (20:54)
[2023-12-31] MEDS: ACETAMINOPHEN TAB 325 MG TAB PO PRN (04:22)
[2023-12-31 04:35] VITALS: RESP 16; TEMP 97.9
--- NOTE | 2023-12-31 05:59 | P.DS ---
Providers Date of admission: 12/30/23 05:57 Expected date of discharge: 12/31/23 Attending physician: Litzy Howell Primary care physician: Stated None - Discharge Diagnosis(es) (1) Term Current Visit: Yes Status: Acute (2) Normal spontaneous vaginal delivery Current Visit: Yes Status: Acute (3) hemorrhage Current Visit: Yes Status: Acute Hospital Course: 28-year-old 2 now para 2-0-0-2 that presented to labor and delivery on 12/29 at 39-0/7 weeks for induction of labor. Patient been receiving routine care which had been essentially uncomplicated. Patient was admitted to labor and delivery and Pitocin induction of labor was begun per hospital protocol. Patient underwent amniotomy and clear fluid was obtained. Patient progressed through labor becoming uncomfortable and requesting epidural. Epidural was placed without difficulty by the anesthesia department. Patient progressed to complete began pushing and had a normal spontaneous vaginal delivery of a viable male at 1647, weight of 8 pounds 7 ounces. Mild shoulder dystocia was appreciated during delivery that was reduced with Yoandy positioning. Patient did have a episode of uterine atony consistent with hemorrhage and Methergine was given. Fundal massage in addition to additional Pitocin IV was given and uterus was noted to be firm at that time. Patient's course has been uneventful. In this day 1 she is ambulating and voiding without difficulty. Her lochia is minimal to moderate. She is breast-feeding. She denies concerns. She would like discharge home. She does desire circumcision of her son prior to discharge. Patient Condition at Discharge: Good Plan - Discharge Summary New Discharge Prescriptions: No Action valACYclovir HCL [Valtrex] 500 mg PO DAILY PRN PRN Reason: herpes outbreak Vit No.179/Iron/Folic [ Tablet] 1 each PO DAILY Aspirin 81 mg PO DAILY Discharge Medication List valACYclovir HCL [Valtrex] 500 mg PO DAILY PRN 11/26/18 [History] Vit No.179/Iron/Folic [ Tablet] 1 each PO DAILY 06/15/22 [History] Aspirin 81 mg PO DAILY 10/16/23 [History] Follow up Appointment(s)/Referral(s): Litzy Howell DO [Doctor of Osteopathic Medicine] - 6 Weeks Patient Instructions/Handouts: Vaginal Delivery (GEN), Vaginal Delivery (DC) Activity/Diet/Wound Care/Special Instructions: No intercourse, tampons tub baths, or intercourse. No heavy lifting greater than a gallon of milk. No driving for two weeks. Call with any fever, shakes or chills, with any pain not alleviated by over the counter meds, or with any quesions or concerns. [id number] ibuprofen 600 mg or 3 tablets every 6 hours as needed for pain. Discharge Disposition: HOME SELF-CARE
[2023-12-31 08:11] LABS: Basophils % (A) 0 %; Eosinophils # (A) 0.1 k/uL (0-0.7); Eosinophils % (A) 1 %; HCT 31.2 % (34.0-46.0); HGB 10.5 gm/dL (11.4-16.0); Lymphocytes # (A) 1.9 k/uL (1.0-4.8); Lymphocytes % (A) 14 %; MCH 30.6 pg (25.0-35.0); MCHC 33.6 g/dL (31.0-37.0); MCV 91.2 fL (80.0-100.0); Mean Platelet Volume 10.8; Monocytes # (A) 0.7 k/uL (0-1.0); Monocytes % (A) 5 %; Neutrophils # (A) 10.8 k/uL (1.3-7.7); Neutrophils % (A) 80 %; Platelet Count 157 k/uL (150-450); RBC 3.42 m/uL (3.80-5.40); RDW 13.3 % (11.5-15.5); WBC 13.5 k/uL (3.8-10.6)
[2023-12-31] MEDS: PRENATAL VIT-IRON-FOLIC ACID 1 EACH TABLET PO SCH (08:51)
[2023-12-31 16:38] VITALS: BP 104/69; PULSE 81
== END 2023-12-31 17:50 | disposition home or self-care (01) | DRG 806 ==
LOC: 4FBP 05:57
PROVIDERS: ADMIT Obstetrics & Gynecology Obstetrics; ATTEND Obstetrics & Gynecology Obstetrics
PROC: 10E0XZZ Delivery of Products of Conception, External Approach (ICD-10-PCS; principal; 2023-12-30)
PROC: 10907ZC Drainage of Amniotic Fluid, Therapeutic from Products of Conception, Via Natural or Artificial Opening (ICD-10-PCS; 2023-12-30)
PROC: 3E033VJ Introduction of Other Hormone into Peripheral Vein, Percutaneous Approach (ICD-10-PCS; 2023-12-30)
DX: O66.0 Obstructed labor due to shoulder dystocia (principal); O72.1 Other immediate postpartum hemorrhage; Z37.0 Single live birth; O98.52 Other viral diseases complicating childbirth; J45.909 Unspecified asthma, uncomplicated; Z95.1 Presence of aortocoronary bypass graft; Z3A.39 39 weeks gestation of pregnancy; Z79.82 Long term (current) use of aspirin; O99.52 Diseases of the respiratory system complicating childbirth; A60.09 Herpesviral infection of other urogenital tract; Z90.49 Acquired absence of other specified parts of digestive tract
CPT/HCPCS: 85025; 86850; 86870; 86880; 86900; 86901